=== PATIENT | male | born 1960 | race Caucasian/White ===

== ENCOUNTER 2021-09-15 18:04 | Emergency (ER) | payer OTHER ==
[~2021-09-15] VITALS: Ht 177.8 cm; Wt 68.0 kg
--- NOTE | 2021-09-15 18:05 | NUR ---
BIBRA 86 C/O ABDOMINAL PAIN STATING PAIN WAS 10/10. PT A&OX4.VITAL SIGNS WITHIN NORMAL LIMITS. EKG WAS TAKEN. STARTED IV L AC 20G. LABS WERE DRAWN AND SENT.
--- NOTE | 2021-09-15 18:07 | NUR ---
DR MARIN AT BESIDE.
--- NOTE | 2021-09-15 18:23 | NUR ---
PT TAKEN TO CT
[2021-09-15] MEDS ORDERED: KETOROLAC TROMETHAMINE 15 MG/ML VIAL ONE (18:27)
--- NOTE | 2021-09-15 18:29 | NUR ---
Angus vickers in [facility] - 09/15/21 at 1844 by LUCIANA X RAY AT BEDSIDE
[2021-09-15 18:30] LABS: BASOPHILS # (AUTO) 0.2 K/uL (0.0-0.2); BASOPHILS % (AUTO) 2.6 % (0.0-2.0); EOSINOPHILS % (AUTO) 2.1 % (0.0-6.0); HEMATOCRIT 47 % (39-51); HEMOGLOBIN 15.4 g/dL (13.5-17.5); LYMPHOCYTES # (AUTO) 1.2 K/uL (0.8-4.8); LYMPHOCYTES % (AUTO) 16.7 % (20.0-44.0); MEAN CORPUSCULAR HGB CONC 33 g/dl (31.0-36.0); MEAN CORPUSCULAR VOLUME 90 fL (80-96); MONOCYTES # (AUTO) 0.4 K/uL (0.1-1.30); MONOCYTES % (AUTO) 5.7 % (2.0-12.0); NEUTROPHILS # (AUTO) 5.3 K/uL (1.8-8.9); NEUTROPHILS % (AUTO) 72.9 % (43.0-81.0); PLATELET COUNT (AUTO) 220 K/uL (150-450); RED BLOOD CELL COUNT(AUTO) 5.25 MIL/uL (4.5-6.0); WHITE BLOOD COUNT (AUTO) 7.3 K/uL (4.3-11.0)
[2021-09-15] MEDS ORDERED: IV NS 0.9% 1,000 ML BAG IV ONE (18:30)
[2021-09-15] MEDS ORDERED: KETOROLAC TROMETHAMINE INJ 30 MG/ML VIAL IV ONE (18:30)
[2021-09-15 18:43] LABS: CALCIUM, SERUM 9.8 mg/dL (8.5-10.1); CREATININE 1.3 mg/dL (0.6-1.3)
[2021-09-15 18:51] LABS: BILIRUBIN,DIRECT 0.1 mg/dL (0.0-0.2); BILIRUBIN,TOTAL 0.5 mg/dL (0.2-1.0); TOTAL PROTEIN, SERUM 8.3 g/dL (6.4-8.2)
--- NOTE | 2021-09-15 20:19 | NUR ---
Patient discharged to home in stable condition. Written and verbal after care instructions given. Patient verbalizes understanding of instruction. Pt ambulated out of ED. VSS.
[2021-09-15 20:25] VITALS: BP 131/75
== END 2021-09-15 20:26 | disposition home or self-care (01) ==
LOC: ER 18:09
DX: R10.9 Unspecified abdominal pain (principal); Z88.1 Allergy status to other antibiotic agents
CPT/HCPCS: 36415; 74176; 80048; 80076; 83690; 85025; 93005; 96361; 96374; 99285; J1885; J7030

== ENCOUNTER 2022-02-20 17:43 | Emergency (ER) | payer OTHER ==
[~2022-02-20] VITALS: Ht 177.8 cm; Wt 61.2 kg
[2022-02-20 17:50] VITALS: BP 119/69
--- NOTE | 2022-02-20 17:55 | NUR ---
BIBS THIS 61/MALE PATIENT WITH CC OF BODY PAIN AND ITCHING X 2 YEARS SPECIALLY AFTER EATING ANYTING. PLACED COMFORTABLY IN BED. VITALS CHECKED.
--- NOTE | 2022-02-20 18:00 | NUR ---
SEEN BY DR ANAND AT BEDSIDE.
[2022-02-20] MEDS ORDERED: LORA10TA7 PO (18:12)
[2022-02-20] MEDS ORDERED: KETOROLAC TROMETHAMINE INJ 30 MG/ML VIAL ONE (18:17)
--- NOTE | 2022-02-20 18:25 | NUR ---
DUE MEDS GIVEN
[2022-02-20] MEDS ORDERED: KETOROLAC TROMETHAMINE INJ 60 MG/2 ML VIAL IM ONE (18:30)
[2022-02-20] MEDS ORDERED: LORATADINE 10 MG TABLET ONE ×3 (19:52→19:54)
[2022-02-20] MEDS ORDERED: LORATADINE 10 MG TABLET PO SCH (20:00)
--- NOTE | 2022-02-20 20:41 | NUR ---
PATIENT WANTS TO GO HOME AND REFUSED TO WAIT FOR DISCHARGE INSTRUCTIONS. AMA FORM SIGNED BY 2 RN's SINCE PATIENT REFUSED TO SIGN.
== END 2022-02-20 20:44 | disposition home or self-care (01) ==
LOC: ER 17:45
DX: M79.10 Myalgia, unspecified site (principal); Z90.89 Acquired absence of other organs; Z88.8 Allergy status to other drugs, medicaments and biological substances; Z79.899 Other long term (current) drug therapy
CPT/HCPCS: 96372; 99283; J1885

== ENCOUNTER 2023-04-07 23:03 | Emergency (ER) | payer OTHER ==
[~2023-04-07] VITALS: Ht 175.3 cm; Wt 76.2 kg
[~2023-04-07 23:03] MED LIST: LORA10TA7 PO
--- NOTE | 2023-04-07 23:29 | NUR ---
CAD APPLICATION SUPPORT SPECIALIST AT PT'S BEDSIDE
[2023-04-07] MEDS ORDERED: FLUCONAZOLE (100 MG) 100 MG TABLET PO ONE (23:30)
[2023-04-07 23:43] LABS: BASOPHILS % (AUTO) 0.7 % (0.0-2.0); EOSINOPHILS % (AUTO) 5.7 % (0.0-6.0); HEMATOCRIT 41 % (39-51); HEMOGLOBIN 13.5 g/dL (13.5-17.5); LYMPHOCYTES # (AUTO) 1.5 K/uL (0.8-4.8); LYMPHOCYTES % (AUTO) 21.6 % (20.0-44.0); MEAN CORPUSCULAR HGB CONC 33 g/dl (31.0-36.0); MEAN CORPUSCULAR VOLUME 85 fL (80-96); MONOCYTES # (AUTO) 0.9 K/uL (0.1-1.30); MONOCYTES % (AUTO) 12.6 % (2.0-12.0); NEUTROPHILS # (AUTO) 4.1 K/uL (1.8-8.9); NEUTROPHILS % (AUTO) 59.4 % (43.0-81.0); PLATELET COUNT (AUTO) 175 K/uL (150-450); RED BLOOD CELL COUNT(AUTO) 4.82 MIL/uL (4.5-6.0); WHITE BLOOD COUNT (AUTO) 6.9 K/uL (4.3-11.0)
[2023-04-07 23:51] LABS: CARBON DIOXIDE 24 mmol/L (21-32); CHLORIDE 105 mmol/L (98-107); CREATININE 1.1 mg/dL (0.6-1.3); GLUCOSE 118 mg/dL (74-106); POTASSIUM 3.8 mmol/L (3.5-5.1); SODIUM SERUM 138 mmol/L (136-145); UREA NITROGEN, BLOOD 18 mg/dL (7-18)
[2023-04-08] MEDS ORDERED: FLUCONAZOLE (100 MG) 100 MG TABLET ONE ×2 (00:27→01:56)
--- NOTE | 2023-04-08 01:28 | NUR ---
MACHINE SETTER AT PT'S BEDSIDE
[2023-04-08] MEDS ORDERED: FLUCONAZOLE (100 MG) 100 MG TABLET PO ONE (02:00)
--- NOTE | 2023-04-08 02:55 | NUR ---
PT STATES HE WANTS TO GO BACK TO [facility]. MEDICATION TECH JAIMIE MADE AWARE.
--- NOTE | 2023-04-08 02:59 | NUR ---
URINE COLLECTED, SENT TO LAB
[2023-04-08 03:59] LABS: BILIRUBIN,URINE NEGATIVE (NEGATIVE); COLOR,URINE YELLOW (YELLOW); LEUKOCYTE ESTERASE ,URINE NEGATIVE (NEGATIVE); NITRITE, URINE NEGATIVE (NEGATIVE); PROTEIN,URINE NEGATIVE (NEGATIVE); UGLUCOSE NEGATIVE (NEGATIVE); UROBILINOGEN,URINE 0.2 EU/dL (0.2)
[2023-04-08 04:01] LABS: BACTERIA,URINE Rare /HPF (None Seen); SQUAMOUS EPITHELIAL CELL,UR Few /HPF (None Seen); WBC,URINE 0-2 /HPF (0-3)
--- NOTE | 2023-04-08 04:27 | NUR ---
CLINICALS FAXED TO [facility]
--- NOTE | 2023-04-08 04:53 | NUR ---
FAXED CLINICALS TO [facility] [phone]
--- NOTE | 2023-04-08 05:13 | NUR ---
AWAITING MEDICAL CLEAR NOTE TO FAX TO [facility] INTAKE
--- NOTE | 2023-04-08 05:49 | NUR ---
[facility] eta [phone]
--- NOTE | 2023-04-08 08:50 | NUR ---
[facility] here to bring Pt back to [facility]. No acute changes/NO obvious Distress. Patient discharged to home in stable condition. Written and verbal after care instructions given. Patient verbalizes understanding of instruction.
[2023-04-08 08:51] VITALS: BP 115/67
== END 2023-04-08 09:01 ==
LOC: ER 23:04
DX: R00.2 Palpitations (principal); Z98.890 Other specified postprocedural states; Z79.899 Other long term (current) drug therapy; Z20.822 Contact with and (suspected) exposure to COVID-19; Z88.1 Allergy status to other antibiotic agents
CPT/HCPCS: 99285; 71045; 93005; 85025; 80048; 36415 ×2; 84484 ×2; 87426; 81001; C9803

== ENCOUNTER 2023-06-20 22:26 | Emergency (ER) | payer OTHER ==
[~2023-06-20] VITALS: Ht 177.8 cm; Wt 74.8 kg
[2023-06-21] MEDS ORDERED: ONDANSETRON HCL/PF 4 MG/2 ML VIAL ONE (00:35)
[2023-06-21] MEDS ORDERED: MORPHINE SULFATE INJ 2 MG/ML DISP.SYRIN ONE (00:35)
[2023-06-21] MEDS: IV NS 0.9% 1,000 ML BAG IV ONE (00:40)
[2023-06-21] MEDS: MORPHINE SULFATE INJ 2 MG/ML DISP.SYRIN IV ONE (00:41)
[2023-06-21] MEDS: ONDANSETRON HCL/PF 4 MG/2 ML VIAL IVP ONE (00:41)
[2023-06-21 00:42] LABS: BASOPHILS % (AUTO) 0.5 % (0.0-2.0); EOSINOPHILS # (AUTO) 0.4 K/uL (0.0-0.7); EOSINOPHILS % (AUTO) 5.6 % (0.0-6.0); HEMATOCRIT 39 % (39-51); HEMOGLOBIN 12.9 g/dL (13.5-17.5); LYMPHOCYTES # (AUTO) 0.8 K/uL (0.8-4.8); LYMPHOCYTES % (AUTO) 10.6 % (20.0-44.0); MEAN CORPUSCULAR HEMOGLOBIN 29 PG (26.0-33.0); MEAN CORPUSCULAR HGB CONC 33 g/dl (31.0-36.0); MEAN CORPUSCULAR VOLUME 87 fL (80-96); NEUTROPHILS # (AUTO) 5.4 K/uL (1.8-8.9); NEUTROPHILS % (AUTO) 70.3 % (43.0-81.0); PLATELET COUNT (AUTO) 131 K/uL (150-450); RED BLOOD CELL COUNT(AUTO) 4.49 MIL/uL (4.5-6.0); RED CELL DISTRIBUTION WIDTH 13.3 % (11.5-15.0); WHITE BLOOD COUNT (AUTO) 7.7 K/uL (4.3-11.0)
[2023-06-21 00:50] LABS: CALCIUM, SERUM 9.2 mg/dL (8.5-10.1); CREATININE 0.9 mg/dL (0.6-1.3)
[2023-06-21 00:56] LABS: ALBUMIN 3.3 g/dL (3.4-5.0); BILIRUBIN,DIRECT 0.2 mg/dL (0.0-0.2); BILIRUBIN,TOTAL 0.7 mg/dL (0.2-1.0); TOTAL PROTEIN, SERUM 6.6 g/dL (6.4-8.2)
[2023-06-21] MEDS ORDERED: ONDA4TAB5 PO ×2 (02:49→02:56)
[2023-06-21 03:52] VITALS: BP 115/61; TEMP 98.5; O2SAT 98
== END 2023-06-21 04:10 | disposition home or self-care (01) ==
LOC: ER 22:35
DX: R10.10 Upper abdominal pain, unspecified (principal); R11.0 Nausea; I48.91 Unspecified atrial fibrillation; Z90.89 Acquired absence of other organs; Z88.8 Allergy status to other drugs, medicaments and biological substances
CPT/HCPCS: 36415; 80048-TC; 80076-TC; 83690-TC; 85025-TC; J2270; J2405; J7030